=== PATIENT | female | born 1975 | race Caucasian/White ===

== ENCOUNTER → 2018-12-31 | Outpatient (CLI) | payer BC ==
--- NOTE | 2018-12-31 16:27 | KCIC ---
EXAM: CT Chest without IV contrast CLINICAL HISTORY: Pulmonary nodule productive cough COMPARISON: None available TECHNIQUE: CT of the chest without intravenous contrast. Axial, coronal and sagittal reformatted images were generated. ---PQRS compliance statement - One or more of the following individualized dose reduction techniques were utilized for this study: 1. Automated exposure control 2. Adjustment of the mA and/or kV according to patient size 3. Use of iterative reconstruction technique--- FINDINGS: Lack of intravenous contrast limits evaluation of solid organs, vasculature, and lymph nodes. Chest: Heart is not enlarged. No pericardial effusion. No pleural effusion or pneumothorax. No axillary lymphadenopathy. Within the constraints of this noncontrast examination, no mediastinal or hilar lymphadenopathy although a few mildly prominent mediastinal lymph nodes are seen. Numerous solid and groundglass nodules are seen bilaterally particularly in the upper lobes and lower lobes. Example a left upper lobe lung nodule measures 7 mm (Series 8 image 79). Visualized Upper abdomen: Small splenule is seen. Focal low-attenuation along falciform ligament likely focal fatty infiltration. Bones: Degenerative changes of the spine are seen. Subacute to chronic posterior lateral right eighth rib fracture is seen. Healed anterolateral right sixth rib fracture is seen. IMPRESSION: Multiple bilateral solid and groundglass nodules are seen. Given multiplicity and distribution, these are favored to represent infectious or inflammatory process. Imaging follow-up to resolution is recommended. Initial CT follow-up is recommended in 3-6 months. Additional follow-up can be considered in 18-24 month based on risk factors. Electronically signed by: Isak Walters MD (12/31/2018 4:24 PM) [facility]
== END | disposition home or self-care (01) ==
LOC: KCIC CT 15:22
PROVIDERS: ATTEND Family Medicine
DX: R91.8 Other nonspecific abnormal finding of lung field (principal)
CPT/HCPCS: 71250